=== PATIENT | male | born 1955 | race Caucasian/White ===

== ENCOUNTER 2019-03-05 19:01 | Observation (INO) ==
[2019-03-05] MEDS ORDERED: NORMAL SALINE 1,000 ML IV ONE (19:29)
[2019-03-05] MEDS ORDERED: MORPHINE SULFATE 4 MG/ML SYRG IV ONE (19:29)
[2019-03-05] MEDS ORDERED: PROCHLORPERAZINE EDISYLATE 5 MG/ML VIAL IV ONE (19:30)
--- NOTE | 2019-03-05 19:36 | ERNOTE ---
<Barry Acosta - Last Filed: 03/05/19 19:31> Abdominal HPI - Narrative Date of Service: 03/05/19 - General Chief Complaint: Abdominal Pain Time Seen by Provider: 03/05/19 19:22 Source: patient Exam Limitations: no limitations - Immun/Allergies/Home Medications Immunizatons: IMMUNIZATION HX Immunizations Up to Date No History of Influenza Vaccine No Hx Pneumococcal Vaccination No Allergies/Adverse Reactions: Allergies Penicillins Adverse Reaction (Mild, Verified 03/05/19 19:11) hallucinations Home Medications: HOME MEDICATIONS fluoxetine 10 mg capsule 10 mg PO QAM #30 cap 01/18/19 [Last Taken 02/06/19] Ciprofloxacin 500 mg PO BID #20 [email or web address] 03/04/19 [Last Taken Unknown] HYDROcodone/ACETAMINOPHEN [[place] 5-325] 1 ea PO Q4H PRN #20 tab 03/04/19 [Last Taken Unknown] Ondansetron HCl [Zofran] 4 mg PO Q6H PRN #15 tab 03/04/19 [Last Taken Unknown] metroNIDAZOLE [Flagyl] 500 mg PO Q8H #30 tab 03/04/19 [Last Taken Unknown] - History of Present Illness Narrative: patient presents to the ED for abdominal pain and recurrent vomiting. He was seen overnight here and had testing and CT scan that was reviewed. He was doing well until 3-4am and started to have increased pain and recurrent vomiting despite meds and anitemetics. Pain mostly low abdomen. No fever. No bowel movements. No acute CP or SOB. Pain can be severe, waxes and wanes. Timing: other - fluctuating intensity Quality: severe Activities at Onset: none Modifying Factors - (Improves): Present: other - nothing Modifying Factors - (Worsens): Present: other - nothing Associated Symptoms: Present: nausea, vomiting, loss of appetite. Absent: shortness of breath Prior Abdominal Problems: Present: similar symptoms Prior Treatment: Present: recently seen, treated by physician, currently on antibiotics Review of Systems - Review of Systems Constitutional: Absent: fever EYE: Present: no symptoms reported ENT: Present: no symptoms reported Respiratory: Absent: shortness of breath Cardiology: Absent: chest pain Gastrointestinal/Abdominal: Present: abdominal pain Genitourinary: Absent: dysuria All Other Systems: All systems neg except as marked Medical History (Updated 03/04/19 @ 23:17 by Tod Helton MD) Knee pain, right (Chronic) Inguinal hernia of left side without obstruction or gangrene (Chronic) Anxiety Onset Date: Unknown Arthritis Onset Date: Unknown Depression Onset Date: Unknown Frequent headaches Onset Date: Unknown H/O cold sores Onset Date: Unknown Heart burn Herpes Onset Date: Unknown Hypertension Onset Date: Unknown Overactive bladder Onset Date: Unknown Surgical History: Surgical History (Updated 02/08/19 @ 11:48 by Simona Puga RN) History of inguinal hernia repair, bilateral Onset Date: 02/07/19 Luther-w/mesh H/O vasectomy Onset Date: Unknown History of colonoscopy Onset Date: 01/31/19 History of esophagogastroduodenoscopy (EGD) Onset Date: 01/31/19 01/31/19 Luther-Moderate chronic focally active H.pylor gastritis. History of tonsillectomy Onset Date: Unknown Hx of appendectomy Onset Date: Unknown Hx of knee surgery Onset Date: ~1971 left Family History: Family History (Updated 01/25/19 @ 09:33 by Simoan Puga RN) Mother Diabetes H/O aortic valve repair Father , age 96-CVA Hypertension CVA (cerebral vascular accident) Grandfather Cancer maternal-colon ca (dx age 60's) Sister Alive and well 2 sister Gout 1 sister Other No pertinent family history Social History: Preferred Language [place] Do you have any mormonism or No cultural preference? Smoking Status Never smoker Abuse History No History of abuse Psych History Hx of Anxiety Alcohol Use none Drug Use none (Last Updated 03/01/19 @ 13:48 by Ed Shane MD) No Social History Section defined Physical Exam - Physical Exam General Appearance: Present: alert, no apparent distress Head Exam: Present: normal inspection, no evidence of injury Eye Exam: Normal inspection: bilateral, PERRL: bilateral Ears, Nose, Throat: Present: normal ENT inspection Neck: Present: normal inspection Respiratory: Present: no respiratory distress, normal breath sounds, no accessory muscle use, lungs clear Cardiovascular/Chest: Present: regular rate, rhythm Gastrointestinal/Abdominal: Present: normal bowel sounds, nondistended, soft, other - Diffuse low abdominal tenderness. No guarding or clear peritoneal signs Back Exam: Present: normal range of motion Extremity Exam: Present: normal inspection Neurological Exam: Present: alert, no motor/sensory deficits Skin Exam: Present: normal color, warm/dry Progress - Results and Orders Results and Orders: Pending at time of handover - Vital Signs Patient's Vital Signs:: I have reviewed the patient's vital signs. Vital Signs: Vital Signs 03/05/19 19:12 03/05/19 19:23 Temperature 37.4 C Pulse Rate 72 73 Respiratory Rate 16 Blood Pressure 152/91 H O2 Sat by Pulse Oximetry 98 100 - Progress/Reassessment Chief Complaint: Abdominal Pain - Transfer of Care Physician Sign Out: Barry Acosta Receiving Physician: Tod Helton Pending Results: Labs, Pain-control Departure Clinical Impression: Abdominal pain, Vomiting, Diverticulitis - Departure Disposition: Short Term Hospital Inpatient Condition: Stable Referrals: Ed Shane MD [Primary Care Provider] - <Tod Helton - Last Filed: 03/05/19 20:32> Abdominal HPI - Immun/Allergies/Home Medications Immunizatons: IMMUNIZATION HX Immunizations Up to Date No History of Influenza Vaccine No Hx Pneumococcal Vaccination No Medical History (Updated 03/04/19 @ 23:17 by Tod Helton MD) Knee pain, right (Chronic) Inguinal hernia of left side without obstruction or gangrene (Chronic) Anxiety Onset Date: Unknown Arthritis Onset Date: Unknown Depression Onset Date: Unknown Frequent headaches Onset Date: Unknown H/O cold sores Onset Date: Unknown Heart burn Herpes Onset Date: Unknown Hypertension Onset Date: Unknown Overactive bladder Onset Date: Unknown Surgical History: Surgical History (Updated 02/08/19 @ 11:48 by Simona Puga RN) History of inguinal hernia repair, bilateral Onset Date: 02/07/19 Luther-w/mesh H/O vasectomy Onset Date: Unknown History of colonoscopy Onset Date: 01/31/19 History of esophagogastroduodenoscopy (EGD) Onset Date: 01/31/19 01/31/19 Luther-Moderate chronic focally active H.pylor gastritis. History of tonsillectomy Onset Date: Unknown Hx of appendectomy Onset Date: Unknown Hx of knee surgery Onset Date: ~1971 left Family History: Family History (Updated 01/25/19 @ 09:33 by Simona Puga RN) Mother Diabetes H/O aortic valve repair Father , age 96-CVA Hypertension CVA (cerebral vascular accident) Grandfather Cancer maternal-colon ca (dx age 60's) Sister Alive and well 2 sister Gout 1 sister Other No pertinent family history Social History: Preferred Language [place] Do you have any mormonism or No cultural preference? Smoking Status Never smoker Abuse History No History of abuse Psych History Hx of Anxiety Alcohol Use none Drug Use none (Last Updated 03/01/19 @ 13:48 by Ed Shane MD) No Social History Section defined Progress - Vital Signs Vital Signs: Vital Signs 03/05/19 19:12 03/05/19 19:23 Temperature 37.4 C Pulse Rate 72 73 Respiratory Rate 16 Blood Pressure 152/91 H O2 Sat by Pulse Oximetry 98 100 Plan - Plan Plan: I assumed care of this patient from the outgoing physician at 8 PM. Briefly 63-year-old gentleman with abdominal pain nausea. Diagnosed with diverticulitis yesterday. Only took three 5/325 hydrocodone over the last 24 hours. Says the pain is bad. Also says the nausea is bad and that the 4 mg of Zofran at the time is not really doing much. He is very anxious gentleman. Labs are essentially unchanged, white counts up a bit today. Exam is actually improved from yesterday. Think it is prudent to observe him overnight give him continued antibiotics as well as pain and nausea medicine and try to get him over the hump. He is in agreement
[2019-03-05 20:02] LABS: Hemoglobin 13.2 gm/dL (13.5-18.0); Mean Cell Volume 91.6 fl (78-100); Mean Corpuscular Hemoglobin 31.8 pg (27-31); Mean Corpuscular Hgb Conc 34.7 g/dl (32-36); Mean Platelet Volume 10.2 fl (8-11.3); Neutrophil % 89.6 % (42-75.0); Platelet Count 224 K/mm3 (150-450); Red Blood Count 4.15 M/mm3 (4.7-6.0); Red Cell Distribution Width 13.1 % (11.5-14.0); White Blood Count 16.7 K/mm3 (4.0-10.5)
[2019-03-05 20:15] LABS: Albumin * 3.5 gm/dl (3.4-5.0); Anion Gap 15.7 mmol/L (6.8-13.8); BUN/Creatinine Ratio 18.2 (9.0-21.6); Bilirubin, Total 0.8 mg/dL (0.0-1.1); Ca. Corrected For Albumin 9.1 mg/dL (8.4-10.2); Potassium 2.7 mmol/L (3.4-4.6); Total Protein 6.9 gm/dL (6.2-8.2)
[2019-03-05] MEDS: POTASSIUM CHLORIDE 20 MEQ TABLET.SA PO SCH (22:24)
[2019-03-05] MEDS: metroNIDAZOLE/SODIUM CHLORIDE 500 MG/100 ML BAG IV SCH (23:04)
[2019-03-06] MEDS: ONDANSETRON HCL/PF 2 MG/ML VIAL IV PRN ×2 (00:25→07:29)
[2019-03-06] MEDS: CIPROFLOXACIN IN 5 % DEXTROSE 400 MG/200 ML BAG IV SCH ×2 (00:29→11:24)
[2019-03-06 00:39] LABS: Urine Bilirubin Negative (NEGATIVE); Urine Blood 50 /ul (NEGATIVE); Urine Ketone Negative (NEGATIVE); Urine Nitrite Negative (NEGATIVE); Urine Protein Negative (NEGATIVE); Urine Urobilinogen Normal (NORMAL)
[2019-03-06 00:59] LABS: Urine Appearance Slightly Cloudy (CLEAR); Urine Color Yellow
[2019-03-06 01:00] LABS: Urine Bacteria None Seen; Urine RBC 0-5 /hpf (0-5); Urine WBC None Seen /hpf (0-5)
[2019-03-06] MEDS: metroNIDAZOLE/SODIUM CHLORIDE 500 MG/100 ML BAG IV SCH (05:50)
[2019-03-06] MEDS: HYDROcodone/ACETAMINOPHEN 1 EACH TABLET PO PRN ×3 (06:59→15:34)
--- NOTE | 2019-03-06 07:05 | HP ---
Chief Complaint - Chief Complaint Date of Service: 03/06/19 Time of Service: 07:04 Chief Complaint: worsening abdominal pain and vomiting. History of Present Illness: 63yo WM with PMH significant for recent Micah hernia repairs, was in usual state of health until the day [employer], which he had acute onset of L lower abdominal pain, assoc. with N/v. Denied F/C. Was seen in ER, dx'd with diverticulitis (elevated WBC and CT results), given zofran, pain med and a dose of cipro and flagyl in the ER and then sent home with [place], cipro and flagyl and zofran. Despite appropriate tx and compliance by patient (verified by ) his pain and sx persisted and was not controlled, so came back to ER and was admitted for observation to try to rest his bowel, give him IV abx and pain meds to control his sx. This am he states he if feeling better, even tolerating clear liquids, but still has significant abdominal pain. Of note his potassium had also dropped from 3.3 the day prior to 2.7 and his WBC went from 14K to almost 17K. He was admitted to obs. Medical History (Updated 03/06/19 @ 07:27 by Ed Shane MD) Knee pain, right (Chronic) Inguinal hernia of left side without obstruction or gangrene (Chronic) Anxiety Onset Date: Unknown Arthritis Onset Date: Unknown Depression Onset Date: Unknown Frequent headaches Onset Date: Unknown H/O cold sores Onset Date: Unknown Heart burn Herpes Onset Date: Unknown Hypertension Onset Date: Unknown Overactive bladder Onset Date: Unknown Surgical History: Surgical History (Updated 03/06/19 @ 07:04 by Ed Shane MD) History of inguinal hernia repair, bilateral Onset Date: 02/07/19 Luther-w/mesh H/O vasectomy Onset Date: Unknown History of colonoscopy Onset Date: 01/31/19 History of esophagogastroduodenoscopy (EGD) Onset Date: 01/31/19 01/31/19 Luther-Moderate chronic focally active H.pylor gastritis. History of tonsillectomy Onset Date: Unknown Hx of appendectomy Onset Date: Unknown Hx of knee surgery Onset Date: ~1971 left Family History: Family History (Updated 01/25/19 @ 09:33 by Simona Puga, RN) Mother Diabetes H/O aortic valve repair Father , age 96-CVA Hypertension CVA (cerebral vascular accident) Grandfather Cancer maternal-colon ca (dx age 60's) Sister Alive and well 2 sister Gout 1 sister Other No pertinent family history Social History: Patient Lives/Resources With Spouse Utilized Occupation Self Employed Preferred Language [place] Do you have any taoism or No cultural preference? Smoking Status Never smoker Have you smoked in the past 12 No months Do you dip or chew tobacco No Abuse History No History of abuse Psych History Hx of Anxiety Alcohol Use none Drug Use none (Last Updated 03/01/19 @ 13:48 by Ed Shane MD) No Social History Section defined Review Of Systems (GEN) - Review of Systems Generalized/Overall Review: Present: Malaise, Fatigue. Absent: Weakness, Chills, Fever EENTM: Present: No Symptoms Reported Respiratory: Present: No Symptoms Reported Cardiac: Present: Chest Pain. Absent: Edema, Palpitations Abdominal: Present: Nausea, Vomiting, Abdominal Pain. Absent: Hematemesis, Constipation, Diarrhea, Melena, Bright blood from rectum Genitourinary: Present: No Symptoms Reported Musculoskeletal: Present: No Symptoms Reported Neurological: Present: No Symptoms Reported Skin: Present: No Symptoms Reported Endocrine: Present: No Symptoms Reported Immunizations: IMMUNIZATION HX Immunizations Up to Date No History of Influenza Vaccine No Hx Pneumococcal Vaccination No Allergies/Adverse Reactions: Allergies Allergy/AdvReac Type Severity Reaction Status Date / Time Penicillins AdvReac Mild hallucinati Verified 03/05/19 19:11 ons Home Medications: HOME MEDICATIONS fluoxetine 10 mg capsule 10 mg PO QAM #30 cap 01/18/19 [Last Taken 02/06/19] Ciprofloxacin 500 mg PO BID #20 [email or web address] 03/04/19 [Last Taken Unknown] HYDROcodone/ACETAMINOPHEN [[place] 5-325] 1 ea PO Q4H PRN #20 tab 03/04/19 [Last Taken Unknown] Ondansetron HCl [Zofran] 4 mg PO Q6H PRN #15 tab 03/04/19 [Last Taken Unknown] metroNIDAZOLE [Flagyl] 500 mg PO Q8H #30 tab 03/04/19 [Last Taken Unknown] Exam - Exam Vital Signs: Vital Signs - Last Taken Temp 37.2 C 03/06/19 02:33 Pulse 75 03/06/19 02:33 Resp 16 03/06/19 02:33 BP 126/72 03/06/19 02:33 Pulse Ox 98 03/06/19 02:33 Constitutional: Present: Alert, Oriented x3, Cooperative, No distress, Thin and frail ENT Exam: Present: hearing grossly normal Eye Exam: bilateral eye: normal inspection, PERRL, EOMI Neck: Present: supple Respiratory: Present: lungs clear, normal breath sounds, no respiratory distress, no accessory muscle use Cardiovascular/Chest: Present: regular rate, rhythm, no murmur Abdomen: Present: soft, nondistended, no rebound tenderness, tender - LLQ to suprapubic region, guarding, firm, no bowel sounds /Rectal: Present: Exam deferred Extremity: Present: non-tender, no pedal edema Skin Exam: Present: normal color, warm/dry Neurologic: Present: rim roller setter II-XII nml as tested, normal mood/affect, oriented x 3, other - very anxious Appearance: Present: appropriate appearance, appropriate insight, neat, no memory impairment Eye contact: Present: cooperative, good eye contact, increased rate of speech Thoughts: Present: normal thought pattern, no apparent hallucination Diagnostic Studies: Abnormal Lab Results 03/05/19 03/05/19 03/06/19 Range/Units 19:36 20:00 00:14 WBC 16.7 H (4.0-10.5) K/mm3 RBC 4.15 L (4.7-6.0) M/mm3 Hgb 13.2 L (13.5-18.0) gm/dL Hct 38.0 L (42.0-52.0) % MCH 31.8 H (27-31) pg Immature Gran # (Auto) 0.06 H (0.000-0.0310) K/mm3 Neutrophils % 89.6 H (42-75.0) % Lymphocytes % 4.7 L (20-51) % Neutrophils # 15.0 H (1.3-6.0) K/mm3 Lymphocytes # 0.78 L (1.5-3.5) k/mm3 Potassium 2.7 L (3.4-4.6) mmol/L Carbon Dioxide 23.0 L (24-32.6) mmol/L Anion Gap 15.7 H (6.8-13.8) mmol/L Random Glucose 131 H (70-110) mg/dL ALT 18 L (19-67) U/L Urine Blood 50 H (NEGATIVE) /ul Laboratory Results WBC 16.7 K/mm3 (4.0-10.5) H 03/05/19 19:36 RBC 4.15 M/mm3 (4.7-6.0) L 03/05/19 19:36 Hgb 13.2 gm/dL (13.5-18.0) L 03/05/19 19:36 Hct 38.0 % (42.0-52.0) L 03/05/19 19:36 MCV 91.6 fl (78-100) 03/05/19 19:36 MCH 31.8 pg (27-31) H 03/05/19 19:36 MCHC 34.7 g/dl (32-36) 03/05/19 19:36 RDW 13.1 % (11.5-14.0) 03/05/19 19:36 Plt Count 224 K/mm3 (150-450) 03/05/19 19:36 MPV 10.2 fl (8-11.3) 03/05/19 19:36 Immature Gran % (Auto) 0.40 % (0.001-0.429) 03/05/19 19:36 Immature Gran # (Auto) 0.06 K/mm3 (0.000-0.0310) H 03/05/19 19:36 89.6 % (42-75.0) H 03/05/19 19:36 4.7 % (20-51) L 03/05/19 19:36 5.1 % (0.0-9) 03/05/19 19:36 0.1 % (0.0-3.0) 03/05/19 19:36 0.1 % (0.0-1.0) 03/05/19 19:36 Nucleated RBC % 0.0 k/mm3 (0-1) 03/05/19 19:36 15.0 K/mm3 (1.3-6.0) H 03/05/19 19:36 0.78 k/mm3 (1.5-3.5) L 03/05/19 19:36 0.9 k/mm3 (0.0-1.0) 03/05/19 19:36 0.0 k/mm3 (0.0-0.7) 03/05/19 19:36 Absolute Basophils 0.0 k/mm3 (0.0-0.1) 03/05/19 19:36 Sodium 136 mmol/L (132-142) 03/05/19 20:00 136 mmol/L (130-142) 03/05/19 20:00 Potassium 2.7 mmol/L (3.4-4.6) L 03/05/19 20:00 Chloride 100 mmol/L (97-106) 03/05/19 20:00 Carbon Dioxide 23.0 mmol/L (24-32.6) L 03/05/19 20:00 15.7 mmol/L (6.8-13.8) H 03/05/19 20:00 BUN 16 mg/dL (6-23) 03/05/19 20:00 0.88 mg/dL (0.4-1.4) 03/05/19 20:00 Est GFR (Non-Af Amer) 93 mL/min (60-130) 03/05/19 20:00 18.2 (9.0-21.6) 03/05/19 20:00 131 mg/dL (70-110) H 03/05/19 20:00 Calcium 9.0 mg/dL (7.9-10.9) 03/05/19 20:00 Calcium Adj for Albumin 9.1 mg/dL (8.4-10.2) 03/05/19 20:00 0.8 mg/dL (0.0-1.1) 03/05/19 20:00 AST 15 U/L (0-48) 03/05/19 20:00 ALT 18 U/L (19-67) L 03/05/19 20:00 56 U/L (50-170) 03/05/19 20:00 6.9 gm/dL (6.2-8.2) 03/05/19 20:00 3.5 gm/dl (3.4-5.0) 03/05/19 20:00 89 U/L (73-393) 03/05/19 20:00 Yellow 03/06/19 00:14 Slightly cloudy (CLEAR) 03/06/19 00:14 6.0 pH (5.0-7.0) 03/06/19 00:14 Ur Specific [place] 1.020 SP.GR. (1.005-1.030) 03/06/19 00:14 Negative mg/dL (NEGATIVE) 03/06/19 00:14 Negative mg/dL (NEGATIVE) 03/06/19 00:14 Negative mg/dL (NEGATIVE) 03/06/19 00:14 50 /ul (NEGATIVE) H 03/06/19 00:14 Negative (NEGATIVE) 03/06/19 00:14 Negative mg/dl (NEGATIVE) 03/06/19 00:14 Normal EU/dl (NORMAL) 03/06/19 00:14 Ur Leukocyte Esterase Negative /ul (NEGATIVE) 03/06/19 00:14 0-5 /hpf (0-5) 03/06/19 00:14 None seen /hpf (0-5) 03/06/19 00:14 Ur Epithelial Cells 0-5 /hpf (0-5) 03/06/19 00:14 None seen (NONE) 03/06/19 00:14 No culture indicated 03/06/19 00:14 Assessment/Plan - Assessment/Plan (1) Hypokalemia Assessment: significant drop to 2.7, most likely from the diverticulitis, N and vomiting. He states he's taking PO better, so will see if oral replacement is going to correct this or whether he needs IV K to correct levels today. Problem: Acute (2) Intractable abdominal pain Assessment: Pain has been better since being in the hospital. will see how he does throughout the day, but needs to be able to control pain via oral meds. Problem: Acute (3) Nausea & vomiting Assessment: appears to be improving given the zofran and treatment of his diverticulitis. BS are still very quiet so need to see if he can continue to maintain at least PO liquids and oral meds today. Problem: Acute Qualifiers: Vomiting type: unspecified Vomiting Intractability: intractable Qualified Code(s): R11.2 - Nausea with vomiting, unspecified (4) Diverticulitis Assessment: will continue IV abx while here, with plan to discharge back on oral meds as long as he's taking PO without difficulty. Problem: Acute (5) Discharge planning issues Assessment: hopefully can discharge home later today, but depends on what his labs show and how he does with PO meds and liquids. Problem: Acute
[2019-03-06 07:25] LABS: Anion Gap 14.7 mmol/L (6.8-13.8); BUN/Creatinine Ratio 15.9 (9.0-21.6); Calcium * 8.6 mg/dL (7.9-10.9); Carbon Dioxide 23.6 mmol/L (24-32.6); Estimated Creat Clear 87.6; Potassium 3.3 mmol/L (3.4-4.6)
[2019-03-06 07:32] LABS: Hematocrit 38.4 % (42.0-52.0); Mean Cell Volume 93.4 fl (78-100); Mean Corpuscular Hemoglobin 31.6 pg (27-31); Mean Corpuscular Hgb Conc 33.9 g/dl (32-36); Mean Platelet Volume 10.3 fl (8-11.3); Neutrophil # 12.9 K/mm3 (1.3-6.0); Neutrophil % 81.8 % (42-75.0); Platelet Count 221 K/mm3 (150-450); Red Blood Count 4.11 M/mm3 (4.7-6.0); Red Cell Distribution Width 13.2 % (11.5-14.0); White Blood Count 15.8 K/mm3 (4.0-10.5)
[2019-03-06] MEDS: POTASSIUM CHLORIDE 20 MEQ TABLET.SA PO SCH (08:51)
[2019-03-06] MEDS ORDERED: FLUoxetine HCL 10 MG CAPSULE PO SCH (09:00)
[2019-03-06] MEDS ORDERED: ONDANSETRON HCL 4 MG TABLET PO PRN (11:59)
[2019-03-06] MEDS ORDERED: metroNIDAZOLE 500 MG TABLET PO SCH (12:00)
[2019-03-06] MEDS ORDERED: NORMAL SALINE 1,000 ML IV ONE (12:05)
--- NOTE | 2019-03-06 16:51 | DS ---
(1) Hypokalemia Problem: Acute (2) Intractable abdominal pain Problem: Acute (3) Nausea & vomiting Problem: Acute Qualifiers: Vomiting type: unspecified Vomiting Intractability: intractable Qualified Code(s): R11.2 - Nausea with vomiting, unspecified (4) Diverticulitis Problem: Acute (5) Discharge planning issues Problem: Acute Description of Stay: Pt. admitted for worsening abdominal pain, N/V. Symptoms were improved where he could continue treatment outpatient as he was taking PO liquids and medications without vomiting. He still had pain and nausea, but I reassurred him and his that it will improve over time as he stays on a clear liquid diet. He had normal BS at time of discharge and though was tender in LLQ, it was less than earlier. He was very, very anxious. His potassium dropped to 2.7 but was back to 3.3 after oral replacement. d/w d oing gatorade to keep potassium levels up at home. Procedures Performed: none Results and Findings: Lab Pending Results 03/05/19 19:36: WBC 16.7 H, RBC 4.15 L, Hgb 13.2 L, Hct 38.0 L, MCV 91.6, MCH 31.8 H, MCHC 34.7, RDW 13.1, Plt Count 224, MPV 10.2, Immature Gran % (Auto) 0.40, Immature Gran # (Auto) 0.06 H, Neutrophils % 89.6 H, Lymphocytes % 4.7 L, Monocytes % 5.1, Eosinophils % 0.1, Basophils % 0.1, Nucleated RBC % 0.0, Neutrophils # 15.0 H, Lymphocytes # 0.78 L, Monocytes # 0.9, Eosinophils # 0.0, Absolute Basophils 0.0 03/05/19 20:00: Sodium 136, Plasma Sodium 136, Potassium 2.7 L, Chloride 100, Carbon Dioxide 23.0 L, Anion Gap 15.7 H, BUN 16, Creatinine 0.88, Est GFR (Non- Af Amer) 93, BUN/Creatinine Ratio 18.2, Random Glucose 131 H, Calcium 9.0, Calcium Adj for Albumin 9.1, Total Bilirubin 0.8, AST 15, ALT 18 L, Alkaline Phosphatase 56, Total Protein 6.9, Albumin 3.5, Lipase 89 03/06/19 00:14: Urine Color Yellow, Urine Appearance Slightly cloudy, Urine pH 6.0, Ur Specific [place] 1.020, Urine Protein Negative, Urine Glucose (UA) Negative, Urine Ketones Negative, Urine Blood 50 H, Urine Nitrate Negative, Urine Bilirubin Negative, Urine Urobilinogen Normal, Ur Leukocyte Esterase Negative, Urine RBC 0-5, Urine WBC None seen, Ur Epithelial Cells 0-5, Urine Bacteria None seen, Urine Culture Comments No culture indicated 03/06/19 07:16: WBC 15.8 H, RBC 4.11 L, Hgb 13.0 L, Hct 38.4 L, MCV 93.4, MCH 31.6 H, MCHC 33.9, RDW 13.2, Plt Count 221, MPV 10.3, Immature Gran % (Auto) 0.40, Immature Gran # (Auto) 0.06 H, Neutrophils % 81.8 H, Lymphocytes % 9.6 L, Monocytes % 8.0, Eosinophils % 0.1, Basophils % 0.1, Nucleated RBC % 0.0, Neutrophils # 12.9 H, Lymphocytes # 1.52, Monocytes # 1.3 H, Eosinophils # 0.0, Absolute Basophils 0.0 03/06/19 07:16: Sodium 137, Plasma Sodium 137, Potassium 3.3 L D, Chloride 102, Carbon Dioxide 23.6 L, Anion Gap 14.7 H, BUN 14, Creatinine 0.88, Est GFR (Non- Af Amer) 93, BUN/Creatinine Ratio 15.9, Random Glucose 120 H, Calcium 8.6 Discharge Location: Home Disposition: Home self-care Condition: Fair Discharge Activity: Activity as tolerated Discharge Diet: Clear Liquids Referrals: Ed Shane MD [Primary Care Provider] - One Week Prescriptions (Any new or edited meds): Ondansetron HCl [Zofran] 4 mg PO Q6H PRN #15 tab PRN Reason: Nausea And Vomiting Complete Home Medications List: Complete Home Medication List: fluoxetine 10 mg capsule 10 mg PO QAM #30 cap 01/18/19 Ciprofloxacin 500 mg PO BID #20 [email or web address] 03/04/19 HYDROcodone/ACETAMINOPHEN [[place] 5-325] 1 ea PO Q4H PRN #20 tab 03/04/19 metroNIDAZOLE [Flagyl] 500 mg PO Q8H #30 tab 03/04/19 Ondansetron HCl [Zofran] 4 mg PO Q6H PRN #15 tab 03/06/19
[2019-03-06 18:30] VITALS: BP 145/85
[2019-03-06] MEDS ORDERED: CIPROFLOXACIN HCL 500 MG TABLET PO SCH (21:00)
== END 2019-03-06 17:50 | disposition home or self-care (01) ==
LOC: MS 19:01 → ER 19:01 → MS 21:23
PROVIDERS: ADMIT Family Medicine; ATTEND Family Medicine
DX: K57.92 Diverticulitis of intestine, part unspecified, without perforation or abscess without bleeding; R10.9 Unspecified abdominal pain; E87.6 Hypokalemia; R11.2 Nausea with vomiting, unspecified
CPT/HCPCS: 36415; 80048; 80053; 81001; 83690; 85025; 96361; 96365; 96366; 96375; 99285; G0378; J2405